=== PATIENT | female | born 1990 | race Caucasian/White ===

== ENCOUNTER 2020-09-26 20:16 | Emergency (ER) | payer MEDICAID, SELFPAY ==
[2020-09-26 20:18] VITALS: BP 120/65; PULSE 75; RESP 16; TEMP 35.8; O2SAT 98
--- NOTE | 2020-09-26 20:26 | ED.EAR ---
HPI - Ear Problem General Chief complaint: Ear Stated complaint: Left ear clogged Time Seen by Provider: 09/26/20 20:21 Source: RN notes reviewed History of Present Illness HPI Narrative: Patient presents emergency room from home for left ear feeling clogged. Patient states for the past month has noticed a feeling of her left ear being clogged with decreased hearing out of her left ear and fullness. She denies any problems with her right ear states she has had problems with earwax before and is tried using Debrox drops with minimal relief. She denies any fevers or chills rhinorrhea sore throat or any other symptoms. Patient does states she is currently Review of Systems Review of Systems: Narrative: Gen.: Denies fevers or chills HEENT: See HPI Neuro: Denies numbness, tingling, weakness Skin: Denies rash Endo: Denies DM PMFSH Past Medical History Medical History (Updated 09/26/20 @ 20:41 by Khadar William DO) Patient denies significant medical history Social History Social History (Updated 09/26/20 @ 20:27 by Khadar William DO) Smoking status: Never smoker Exam Narrative: Exam Narrative: APPEARANCE: No acute distress, nontoxic, resting in bed HEENT: Normocephalic, atraumatic, right TM is normal appearance, the left TM is unable to be visualized secondary to cerumen impaction nares patent RESPIRATORY: No respiratory distress MUSCULOSKELETAl: Moves all extremities. NEURO: Awake and alert. Following commands, speech normal, no focal deficits SKIN:: Warm, dry. Normal Color PSYCHIATRIC: Normal affect/mood Course Course Emergency Course: Patient with irrigation in ED and large amount of earwax removed repeat exam shows normal tympanic membrane on left Discussed with patient results of workup and diagnosis. Discussed need for follow-up with primary care, proper use of medication, and reasons to return to the emergency department. Patient understands and agrees to current treatment plan Vital Signs Vital signs: Vital Signs Temperature 96.4 F L 09/26/20 20:18 Pulse Rate 75 09/26/20 20:18 Respiratory Rate 16 09/26/20 20:18 Blood Pressure 120/65 09/26/20 20:18 Pulse Oximetry 98 09/26/20 20:18 Temperature 97.5 F L 09/26/20 20:34 Pulse Rate 87 09/26/20 20:34 Respiratory Rate 16 09/26/20 20:34 Blood Pressure 118/79 09/26/20 20:34 Pulse Oximetry 100 09/26/20 20:34 Medical Decision Making Vital Signs Vital Signs: Vital Signs Temperature 96.4 F L 09/26/20 20:18 Pulse Rate 75 09/26/20 20:18 Respiratory Rate 16 09/26/20 20:18 Blood Pressure 120/65 09/26/20 20:18 Pulse Oximetry 98 09/26/20 20:18 Temperature 97.5 F L 09/26/20 20:34 Pulse Rate 87 09/26/20 20:34 Respiratory Rate 16 09/26/20 20:34 Blood Pressure 118/79 09/26/20 20:34 Pulse Oximetry 100 09/26/20 20:34 Discharge Plan Discharge Clinical Impression: Cerumen impaction Qualifiers: Laterality: left Qualified Code(s): H61.22 - Impacted cerumen, left ear Patient Disposition: Home, Self-Care Condition: Stable Instructions: Antibiotic Form Additional Instructions: Return for increasing ear pain or any other symptoms of concern Follow-up/Referrals: PHYSICIAN NOT ON STAFF,NONSTAFF [Primary Care Provider] - 2 Days Time of Disposition: 20:43
[2020-09-26 20:34] VITALS: BP 118/79; PULSE 87; RESP 16; TEMP 36.4; O2SAT 100
--- NOTE | 2020-09-26 20:34 | PC.NURSE ---
left ear irrigated, lg lump of wax obtained.
== END 2020-09-26 20:52 | disposition home or self-care (01) ==
LOC: ANHED 20:52
PROVIDERS: Emergency Provider Emergency Medicine
DX: H61.22 Impacted cerumen, left ear (principal)
CPT/HCPCS: 69209; 99282